=== PATIENT | male | born 1965 | race Caucasian/White ===

== ENCOUNTER 2017-06-09 09:00 | Emergency (ER) | payer BC ==
[2017-06-09 09:23] VITALS: BP 153/89
--- NOTE | 2017-06-09 09:58 | RAD ---
INDICATION: Left shoulder pain. TECHNIQUE: 4 views of the left shoulder were obtained. FINDINGS: The bones are normal alignment. No fracture is seen. 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 There is moderate osteoarthritic change in the acromioclavicular joint. IMPRESSION: 1. MODERATE OSTEOARTHRITIC CHANGE IN THE AC JOINT. 2. OS ACROMIALE.
--- NOTE | 2017-06-09 10:22 | UC ---
Upper Extremity HPI - HPI Summary HPI Summary: 51 year old male presents with left shoulder pain with no trauma. - History of Current Complaint Chief Complaint: UCUpperExtremity Stated Complaint: LEFT SHOULDER PAIN Time Seen by Provider: 06/09/17 09:16 Hx Obtained From: Patient Onset/Duration: Gradual Onset Severity Initially: Moderate Severity Currently: Moderate Pain Intensity: 6 Pain Scale Used: 0-10 Numeric - Allergies/Home Medications Allergies/Adverse Reactions: Allergies Allergy/AdvReac Type Severity Reaction Status Date / Time Diphenhydramine Allergy Severe Difficulty Verified 06/09/17 09:23 [From Benadryl] Breathing PMH/Surg Hx/FS Hx/Imm Hx Previously Healthy: Yes - Surgical History Surgical History: Yes Surgery Procedure, Year, and Place: Right shoulder 2006; Abd hernia 2007; right wrist 07/2016 - Family History Known Family History: Positive: Hypertension - Social History Alcohol Use: Rare Substance Use Type: None Smoking Status (MU): Never Smoked Tobacco Review of Systems Constitutional: Negative Skin: Negative Eyes: Negative ENT: Negative Respiratory: Negative Cardiovascular: Negative Gastrointestinal: Negative Genitourinary: Negative Motor: Negative Neurovascular: Negative Musculoskeletal: Other: - left shoulder pain Neurological: Negative Psychological: Negative All Other Systems Reviewed And Are Negative: Yes Physical Exam Triage Information Reviewed: Yes Vital Signs: Initial Vital Signs Temp 36.8 C 06/09/17 09:15 Pulse 85 06/09/17 09:15 Resp 18 06/09/17 09:15 BP 153/89 06/09/17 09:15 Pulse Ox 100 06/09/17 09:15 Vital Signs Reviewed: Yes Eye Exam: Normal ENT Exam: Normal Dental Exam: Normal Neck exam: Normal Neck: Positive: 1 Respiratory Exam: Normal Cardiovascular Exam: Normal Abdominal Exam: Normal Musculoskeletal: Positive: Strength Limited @, ROM Limited @, Other: - left shoulder pain Neurological Exam: Normal Psychological Exam: Normal Skin Exam: Normal Upper Extremity Course/Dx - Differential Dx/Diagnosis Provider Diagnoses: left shoulder biceps tendonitis Discharge - Discharge Plan Condition: Stable Disposition: HOME Prescriptions: Meloxicam [Mobic] 7.5 mg PO BID PC #30 tab Methocarbamol TAB* [Robaxin 500 MG TAB*] 500 mg PO TID PRN #30 tab PRN Reason: Spasms Patient Education Materials: Tendinitis (ED) Referrals: Killian Maldonado MD [Medical Doctor] - No Primary Care Phys,NOPCP [Primary Care Provider] -
== END 2017-06-09 10:18 | disposition home or self-care (01) ==
LOC: UCCORT 09:00
DX: M75.82 Other shoulder lesions, left shoulder (principal); Z88.8 Allergy status to other drugs, medicaments and biological substances
CPT/HCPCS: 99212; G0463

== ENCOUNTER 2018-01-24 10:34 | Emergency (ER) | payer BC ==
[2018-01-24 11:10] VITALS: BP 143/80
--- NOTE | 2018-01-24 11:39 | UC ---
Back Pain HPI - HPI Summary HPI Summary: Pt with left low back pain. Pt states "irritates it" once a year. 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 Pt has taken motrin yesterday with improvement. no analgesia today. no LE paresthesia, leg weakness . No bowel/bladder changes. no radiation. Pt has previously used flexeril with food relief. No bowel, bladder changes. Pts medications reviewed this visit - History of Current Complaint Chief Complaint: UCBackPain Stated Complaint: BACK PAIN Time Seen by Provider: 01/24/18 11:38 Hx Obtained From: Patient Onset/Duration: Gradual Onset, Lasting Days Timing: Constant Severity Initially: Moderate Pain Intensity: 5 Pain Scale Used: 0-10 Numeric Back Pain: Is Discrete @ - left lumbar Character: Spasmodic, Stiffness Aggravating Factor(s): Movement, Walking Alleviating Factor(s): OTC Meds Associated Signs And Symptoms: Positive: Negative - Allergies/Home Medications Allergies/Adverse Reactions: Allergies Allergy/AdvReac Type Severity Reaction Status Date / Time diphenhydramine Allergy Difficulty Verified 01/24/18 11:11 [From Benadryl] Breathing Home Medications: Home Medications Acetaminophen [Acetaminophen Extra Strength] 1,500 mg PO ONCE PRN 01/24/18 [ History Confirmed 01/24/18] Ibuprofen TAB* [Motrin TAB* 400 MG] 400 mg PO ONCE PRN 01/24/18 [History Confirmed 01/24/18] PMH/Surg Hx/FS Hx/Imm Hx Previously Healthy: Yes - Surgical History Surgical History: Yes Surgery Procedure, Year, and Place: Right shoulder 2006; Abd hernia 2007; right wrist 07/2016 - Family History Known Family History: Positive: Hypertension - Social History Occupation: Employed Full-time Lives: With Family Alcohol Use: None Substance Use Type: None Smoking Status (MU): Never Smoked Tobacco Review of Systems Constitutional: Negative Motor: Negative Neurovascular: Negative Musculoskeletal: Other: - left lower back All Other Systems Reviewed And Are Negative: Yes Physical Exam - Summary Physical Exam Summary: Vital Signs Reviewed: Yes Eyes: Conjunctiva Clear, MARNI. EOM intact and full ENT: Hearing grossly normal TM x 2 clear, mmoist, uvula midling, no exudate, no erythema Neck: Positive: Supple Respiratory: Positive: No respiratory distress, No accessory muscle use + CTA throughout no w/r Cardiovascular: RRR nl s1, s2 no m/r CBT <2 sec Musculoskeletal Exam: GEIGER x 4 without difficulty Strength Intact, ROM Intact no pain c/t/l/s + TTP left mid lumbar area paraspinal. Pain increases with direct palpation. Pt with slow movement changing positions. Pain increases with extension left LE Neurological: Positive: Alert, + sensation throughout Psychological: Positive: Normal Response To Family Skin: Positive: no rash,, no ecchymosis Triage Information Reviewed: Yes Vital Signs: Initial Vital Signs Temp 97.8 F 01/24/18 11:02 Pulse 73 01/24/18 11:02 Resp 18 01/24/18 11:02 BP 143/80 01/24/18 11:02 Pulse Ox 99 01/24/18 11:02 Back Pain Course/Dx - Course Course Of Treatment: Pt with left lower paraspinal back pain. palpable spasm. Pt distally intact. Pt drove to , declined analgesia. will Rx flexeril. heat. stretch. motrin/apap. pt has support belt. pt comfortable and in agreement with plan - Differential Dx/Diagnosis Provider Diagnoses: lumbar spine muscle spasm Discharge - Sign-Out/Discharge Documenting (check all that apply): Discharge/Admit/Transfer - Discharge Plan Condition: Stable Disposition: HOME Prescriptions: Cyclobenzaprine TAB* [Flexeril 10 MG TAB*] 10 mg PO BID PRN #20 tab PRN Reason: muscle spasm Patient Education Materials: Muscle Strain (ED), Low Back Strain (ED) Referrals: Liset Triplett PA [Primary Care Provider] - Additional Instructions: - Okay to alternate ibuprofen (Advil, Motrin) 600mg and Tylenol 1000mg every 3hours as needed for pain. -Take flexeril - muscle relaxer as prescribed. Take with food. Do NOT take for more than 4-[address], operate machinery or drink alcohol while taking [place]. -Apply moist heat to your back for 20 minutes at a time, 4-5 times a day. Once your muscles are warm, slow gentle stretching exercises are important - Wear a back support brace to help with your discomfort - Slowly change position - lying to sitting, sitting to standing -Contact your doctor today to arrange a follow-up appointment next week. -If you pain is uncontrolled, you develop weakness of legs or any other concerns - go to an emergency department for further treatment - Billing Disposition and Condition Condition: STABLE Disposition: HOME
== END 2018-01-24 12:00 | disposition home or self-care (01) ==
LOC: UCCORT 10:34
DX: M62.830 Muscle spasm of back (principal); Z88.8 Allergy status to other drugs, medicaments and biological substances
CPT/HCPCS: 99212; G0463

== ENCOUNTER 2018-05-22 07:19 | Emergency (ER) | payer BC ==
[2018-05-22 07:36] VITALS: BP 127/66
--- NOTE | 2018-05-22 08:05 | UC ---
General HPI - HPI Summary HPI Summary: Patient presented to urgent care reporting 2 weeks of progressive sinus pressure postnasal drip and cough. Patient states he had some coughing reason that improved but now has increased facial pain and postnasal drip. Patient state intermittently his throat hurts. 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 Patient's been home for 3 days. Patient states she's got some body aches. No documented fever. Patient has not taken any of the counter medications. Patient does have diabetes which he takes Actos. Does not take insulin. Does not take his sugar. Patient states that a cousin the work site have been sick as well. Patient's medications reviewed this visit. - History of Current Complaint Chief Complaint: UCRespiratory Stated Complaint: ACHES, FATIGUE Time Seen by Provider: 05/22/18 08:04 Hx Obtained From: Patient Pain Intensity: 0 - Allergy/Home Medications Allergies/Adverse Reactions: Allergies Allergy/AdvReac Type Severity Reaction Status Date / Time diphenhydramine Allergy Difficulty Verified 05/22/18 07:31 [From Benadryl] Breathing PMH/Surg Hx/FS Hx/Imm Hx Previously Healthy: Yes Endocrine History: Diabetes - Surgical History Surgical History: Yes Surgery Procedure, Year, and Place: Right shoulder 2006; Abd hernia 2007; right wrist 07/2016 - Family History Known Family History: Positive: Hypertension - Social History Occupation: Employed Full-time Lives: With Family Alcohol Use: None Substance Use Type: None Smoking Status (MU): Never Smoked Tobacco Review of Systems Constitutional: Negative ENT: Sore Throat, Ear Ache, Nasal Discharge, Sinus Congestion Respiratory: Cough All Other Systems Reviewed And Are Negative: Yes Physical Exam - Summary Physical Exam Summary: Vital Signs Reviewed: Yes A+Ox3, no distress Eyes: Conjunctiva Clear, MARNI. EOM intact and full ENT: Hearing grossly normal, mild fluid left ear, turbinates inflammed and boggy. + PND mmoist, uvula midline, no exudate, no erythema + TTP max sinus, L>R Neck: Positive: Supple Respiratory: Positive: No respiratory distress, No accessory muscle use + CTA throughout no w/r Cardiovascular: RRR nl s1, s2 no m/r CBT <2 sec abd soft + BS nt/nd no guarding, no distension Musculoskeletal Exam: GEIGER x 4 without difficulty Strength Intact, ROM Intact Neurological: Positive: Alert, + sensation throughout Psychological: Positive: Normal Response To Family Skin: Positive: no rash, no ecchymosis Triage Information Reviewed: Yes Vital Signs: Initial Vital Signs Temp 97.8 F 05/22/18 07:32 Pulse 87 05/22/18 07:32 Resp 20 05/22/18 07:32 BP 127/66 05/22/18 07:32 Pulse Ox 99 05/22/18 07:32 Course/Dx - Course Course Of Treatment: Pt with progressive congestion, sinus pressure, PND and sore throat. Pt reports fatigue. VSS. pt with congestion and PND. no exudate. Rx for rhinosinusutus. secretion precaution. decongestant. return precaution - Differential Dx - Multi-Symptom Provider Diagnoses: Rhinosinusitis Discharge - Sign-Out/Discharge Documenting (check all that apply): Patient Departure All imaging exams completed and their final reports reviewed: No Studies - Discharge Plan Condition: Stable Disposition: HOME Prescriptions: Amoxicillin PO (*) [Amoxicillin 500 MG CAP*] 500 mg PO Q12H #20 cap Patient Education Materials: Rhinosinusitis (ED) Referrals: [facility] [place] [facility]IAN REFERRAL [Outside] No Primary Care Phys,NOPCP [Primary Care Provider] - Additional Instructions: - Stay well hydrated. Drink plenty of non-alcoholic, non-caffinated beverages. - Alternate ibuprofen (Advil, Motrin) 600mg and Tylenol every 3 hours for pain or fever. Take with food. Do NOT take for more than 4-5 days. - These infections are spread by secretions - do NOT share eating or drinking utensils - clean items you share with other people such as cell phones, computer mouse, TV remote, computer tablets,etc. Once you have been antibiotics for 2 days, change your toothbrush and your pillowcase. - get plenty of restful sleep - humidify the air in the room where you sleep - boil water, run a hot steam shower, vaporizer, cups of water by heat register - okay to take over the counter decongestant and cough medication - contact your doctor or return with questions or concerns - Billing Disposition and Condition Condition: STABLE Disposition: Home
== END 2018-05-22 08:23 | disposition home or self-care (01) ==
LOC: UCCORT 07:19
DX: J32.9 Chronic sinusitis, unspecified (principal); E11.9 Type 2 diabetes mellitus without complications; Z79.84 Long term (current) use of oral hypoglycemic drugs; Z88.8 Allergy status to other drugs, medicaments and biological substances
CPT/HCPCS: 99212; G0463

== ENCOUNTER 2019-05-31 11:03 | Emergency (ER) | payer BC | END 2019-05-31 12:00 | disposition left against medical advice (07) | LOC: UCCORT 11:03 | DX: Z53.21 Procedure and treatment not carried out due to patient leaving prior to being seen by health care provider (principal) ==

== ENCOUNTER 2019-10-25 08:48 | Emergency (ER) | payer BC ==
--- OUTSIDE RECORDS SUMMARY | 2019-10-25 09:02 | XMS REPORT | Continuity of Care Document ---
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 Onset: 08/07/2011 Chronic crepitant synovitis of wrist Awilda Mendez PA Onset: 05/16/2016 Sprain of wrist Awilda Mendez PA Onset: 05/16/2016 Inflammatory and toxic neuropathy Awilda Mendez PA Onset: 11/19/2016 Essential hypertension Carroll Cortez MD Onset: 08/11/2018 Adult health examination Carroll Cortez MD Onset: 08/11/2018 Hyperlipidemia Carroll Cortez MD Onset: 08/11/2018 Social History Type Date Description Comments Sex Unknown Cigarette Use Family Does Not Smoke ETOH Use Denies alcohol use Tobacco Use Start: Unknown Patient does not smoke Recreational Drug Use Denies Drug Use Smoking Status Reviewed: 07/09/19 Patient does not smoke Allergies, Adverse Reactions, Alerts Active Allergies Reaction Severity Comments Date Benadryl 11/24/2008 Medications Active Medications SIG Qnty Indications Ordering Date Provider Hydrochlorothiazide 1 by mouth every 90tabs I10 Victoria Crawley 25mg day C., LOCKSTITCH BINDER 0 Tablets Saline Nasal [place] 2 sprays 1units J01.90 Victoria Crawley 0.65% intranasal every C., LOCKSTITCH BINDER 0 Solution 2 hours congestion D3 Maximum Strength 1 cap by mouth 90caps M79.672 Breanne 5000Unit every day MD Chery, 9 Capsules PHD B12 Fast Dissolve tab by mouth 90tabs M79.672 Breanne, 5000mcg every day MD Chery, 9 Tablets Dispers PHD Metformin HCL ER 1-2 tabs by 240tabs E11.8 Temo Crawleyen 500mg Tablets mouth twice a C., LOCKSTITCH BINDER 9 ER 24HR day wc Glipizide ER 1 tab by mouth 90tabs E11.8 Tabcorby Victoria 10mg Tablets ER every day C., LOCKSTITCH BINDER 9 24HR Atorvastatin Calcium 1 tab by mouth 90tabs E78.5 Tab, [facility] 40mg every day C., LOCKSTITCH BINDER 9 Tablets Losartan Potassium 1 tab by mouth 90tabs I10 Tab, Victoria 50mg Tablets every day C., LOCKSTITCH BINDER 9 Freestyle [place] Lite 1 check 1-2 1units E11.8 Temo Crawleyen W/Device times a day as C., LOCKSTITCH BINDER 9 Kit needed Freestyle Lite Test use to check 100units E11.8 Temo Crawleyen Strips blood sugar 1-2 C., LOCKSTITCH BINDER 9 times a day as directed. Freestyle Lancets 1 to test sugar 100units E11.8 Temo Crawleyen Misc 1-2 times a day C., LOCKSTITCH BINDER 9 as directed. Alcohol Pads use before 100units E11.8 Victoria Crawley 70% Pads checking blood C., LOCKSTITCH BINDER 9 sugar 1-2 times a day History Medications No Active Medications Unknown 07/09/2019 - 07/09/2019 Medications Administered in Office Medication SIG Qnty Indications Ordering Provider Date Depomedrol 40mg/1cc Analia Low MD 11/24/2007 (methylprednisolone acetate) Injection Immunizations CPT Code Status Date Vaccine Lot # [id number] Given 11/01/2009 H1N1 Immuniation Adminstration 23472 Given 11/01/2009 H1N1 Immuniation Adminstration 19613 Given 05/08/2009 flu vaccination 17743 Given 08/10/2008 Influenza Virus Vaccine Intranasal Vital Signs Date Vital Result Comment 10/12/2019 9:36am BP Systolic Sitting Left Arm 138 mmHg BP Diastolic Sitting Left Arm 96 mmHg Body Temperature 95.4 F Heart Rate 86 /min Respiratory Rate 16 /min Height 68 inches 5'8" Weight 313.38 lb Pain Level 0 BMI (Body Mass Index) 47.6 kg/m2 BSA (Body Surface Area) 2.47 m2 Marion body weight in kilograms 70 kg O2 % BldC Oximetry 96 % Ra 07/09/2019 10:54am BP Systolic Sitting Left Arm 144 mmHg BP Diastolic Sitting Left Arm 69 mmHg Body Temperature 97.3 F Heart Rate 86 /min Respiratory Rate 18 /min Height 68 inches 5'8" Weight 303.00 lb BMI (Body Mass Index) 46.1 kg/m2 BSA (Body Surface Area) 2.44 m2 Marion body weight in kilograms 70 kg O2 % BldC Oximetry 95 % Results Test Acquired Facility Test Result H/L Range Note Date Glycohemoglobin A1c 10/12/2019 PSYCHIATRIC Glycohemoglobin 9.2 % High 4.2-6.3 1 , [address] (A1c) [place], [place] [id number] [phone] eAG 217 mg/dL Comprehensive Metabolic 10/12/2019 PSYCHIATRIC Glucose 284 mg/dL High 74-[address] [place], [place] [id number] [phone] BUN 11 mg/dL Normal 7-18 Creatinine 0.9 mg/dL Normal 0.6-1.3 Glom Filtration Rate, Estimate >60 mL/min >60 If >60 mL/min >60 3 BUN/Creat 12.2 ratio Sodium 134 mmol/L Low 136-145 Potassium 3.9 mmol/L Normal 3.5-5.1 Chloride 102 mmol/L Normal 98-107 Carbon Dioxide 28 mmol/L Normal 21-32 Anion Gap 4 mEq/L Low 8-16 Calcium 9.1 mg/dL Normal 8.5-10.1 Total Protein 7.6 g/dL Normal 6.4-8.2 Albumin 3.7 g/dL Normal 3.4-5.0 Globulin 3.9 g/dL Normal 1.9-4.3 Alb/Glob 0.9 ratio Bilirubin,Total 1.0 mg/dL Normal 0.2-1.0 Sgot/Ast 22 U/L Normal 15-37 SGPT/Alt 39 U/L Normal 12-78 Alkaline Phosphatase 74 U/L Normal 45-117 LDL Cholesterol Profile 10/12/2019 [facility] Cholesterol 128 mg/dL <[address] [place] [address] [phone] Triglycerides 128 mg/dL <150 5 HDL Cholesterol 38 mg/dL Low >40 6 LDL-Cholesterol 64 mg/dL < 100 7 Microalbumin,Random 10/12/2019 [facility] Microalbumin,Urine 18.3 < 20.[address] mg/[place] [address] [phone] Order 10/12/2019 [facility], Cardiology EKG <pendi [address] ng> [place] [address] [phone] 1 E11.9 2 Elevated levels of HbA1c suggest the need for more aggressive treatment of glycemia. The [place] [employer] Association recommends that a primary goal of therapy should be a HbA1c of <7% and that physicians should re-evaluate the treatment regimen in patients with HbA1c values consistently >8%. 3 Note: Persistent reduction for 3 months or more in an eGFR <60 mL/min/1.73 m2 defines CKD. Patients with eGFR values >/=60 mL/min/1.73 m2 may also have CKD if evidence of persistent proteinuria is present. The original MDRD equation for estimated GFR is not valid for patients less than 18 years of age. Additional information may be found at www.kdoqi.org. 4 Reference Guidelines*: Desirable: ........... < 200 mg/dL Borderline High: ..... 200-239 mg/dL High: ................ >= 240 mg/dL * The National Cholesterol Education Program (NCEP) 5 Reference Guidelines*: Normal: ............. < 150 mg/dL Borderline High: .... 150-199 mg/dL High: ............... 200-499 mg/dL Very High: .......... > 500 mg/dL * Source: National Cholesterol Education Program (NCEP) 6 Reference Guidelines*: Low HDL: ..... < 40 mg/dL Normal: ..... 40-60 mg/dL Desirable: ... > 60 mg/dL *The National Cholesterol Education Program(NCEP) 7 Reference Guidelines*: Optimal:........... <100 mg/dL Near Optimal....... 100-129 mg/dL Borderline High.... 130-159 mg/dL High............... 160-189 mg/dL Very High.......... >=190 mg/dL * Source: National Cholesterol Education Program (NCEP) Procedures Date Code Description Status 10/12/2019 05077 EKG-Tracing And Report Completed Medical Devices Description No Information Available Encounters Type Date Location Provider Dx Diagnosis Office Visit 10/12/2019 Family Medicine Victoria Crawley, I10 Essential ( primary) 9:40a [facility] hypertension E11.9 Type 2 diabetes mellitus without complications E78.5 Hyperlipidemia, unspecified E66.9 Obesity, unspecified J01.90 Acute sinusitis, unspecified Office Visit 07/09/2019 11:00a Family Medicine Chery Raymundo, M79.672 Pain in left [facility] , PHD foot E11.8 Type 2 diabetes mellitus with unspecified complications E78.5 Hyperlipidemia, unspecified I10 Essential (primary) hypertension E66.9 Obesity, unspecified R53.83 Other fatigue Office Visit 06/30/2019 12:00p [facility], M79.672 Pain in left [facility] foot R60.0 Localized edema E11.8 Type 2 diabetes mellitus with unspecified complications Assessments Date Code Description Provider 10/12/2019 I10 Essential (primary) hypertension Victoria Crawley, LOCKSTITCH BINDER 10/12/2019 E11.9 Type 2 diabetes mellitus without Victoria Crawley, LOCKSTITCH BINDER complications 10/12/2019 E78.5 Hyperlipidemia, unspecified Victoria Crawley, LOCKSTITCH BINDER 10/12/2019 E66.9 Obesity, unspecified Victoria Crawley, LOCKSTITCH BINDER 10/12/2019 J01.90 Acute sinusitis, unspecified Victoria Crawley, LOCKSTITCH BINDER 07/09/2019 M79.672 Pain in left foot Chery Raymundo MD, PHD 07/09/2019 E11.8 Type 2 diabetes mellitus with Chery Raymundo MD, PHD unspecified complications 07/09/2019 E78.5 Hyperlipidemia, unspecified Chery Raymundo MD, PHD 07/09/2019 I10 Essential (primary) hypertension Chery Raymundo MD, PHD 07/09/2019 E66.9 Obesity, unspecified Chery Raymundo MD, PHD 07/09/2019 R53.83 Other fatigue Chery Raymundo MD, PHD 06/30/2019 M79.672 Pain in left foot Patricia Trevizo FNP 06/30/2019 R60.0 Localized edema Patricia Trevizo FNP 06/30/2019 E11.8 Type 2 diabetes mellitus with Patricia Trevizo FNP unspecified complications Plan of Treatment Future Appointment(s):12/28/2019 10:00 am - Victoria Crawley FNP at [facility]10/12/2019 - Victoria Crawley FNPI10 Essential (primary) hypertensionNew Medication:Hydrochlorothiazide 25 mg - 1 by mouth every dayComments:PRESSURE POINTS1 What high blood pressure is. Blood pressure is the force that your blood exerts onthe jack of the arteries it flows through, just like water flowing through a garden hose pushes against the hose??s jack. Your blood pressure consists of two numbers. ??Systolic is the pressure on blood vessel jack during heart beats,?? says Lorenzo Lira, professor of cardiovascular disease prevention at the [employer]. ??Diastolic is the pressure between beats,?? so it??s lower. When people have high blood pressure??also called hypertension??it??s often because blood vessels are too rigid to expand when the heart pumps. It??s as though the hose were made of glass instead of rubber. 2 Everyone is at risk. Why worry about high blood pressure if you haven??t been diagnosed with it? Because, odds are, you eventually will be. ??Over time, 90 percent of people in this country develop hypertension,?? says Scooter Mcdaniel, professor of preventive medicine at the [employer]. That??s because blood pressure typically creeps up as youage. In the Atherosclerosis Risk in Communities study, which followed more than 15,000 Americans aged 45 to 64, average systolic blood pressure linda by five points in five years.1 ??Blood pressures drift upward as people get older and they??re exposed to long-term excess sodium,?? explains Havas. ??That??s why almost all adults are going to get blood pressures that put them at higher risk for heart disease and stroke.? ? But most hypertension is preventable with a healthy diet and exercise, he adds.3 Your risk starts to rise at any blood pressure above ??normal.?? Doctors used to diagnose patientswith hypertension when their systolic pressure reached NORMAL BLOOD PRESSURE <120/<80 * Recommendations: Healthy lifestyle choices and yearly checks.ELEVATED BLOOD PRESSURE 120-129/<80 * Recommendations: Healthy lifestyle changes, reassessed in 3-6 months.HIGH BLOOD PRESSURE / STAGE 1 130-139/80-89 * Recommendations: 10-year heart disease and stroke risk assessment. If less than 10% risk, lifestyle changes, reassessed in 3-6 months. If higher, lifestyle changes and medication with monthly follow-ups until blood pressure is controlled. HIGH BLOOD PRESSURE / STAGE 2 >140/> 90 * Recommendations: Lifestyle changes and 2 different classes of medicine, with monthly follow-ups until blood pressure is controlled.How much diet and exercise can lower your blood pressure Got high blood pressure? You??re in good company.Nearly half of [place] adults now have hypertension, according to recent guidelines from the [place] [employer] Association and the [place] College [employer].That means that many people who had ??prehypertension?? according to the old guidelines now have ??stage 1 hypertension.?? Most of them don??t need to start taking drugs to lower their pressure (that depends on other risk factors). Instead, the guidelines recommend a healthy lifestyle.Why? Because it works. Here??s how much your systolic pressure (the higher of your two blood pressure numbers) could fall with diet and exercise, according to the new guidelines:1. Eat a DASH diet: 11 pointsDon??t want to count servings?Start by filling half your plate with fruits and vegetables.A DASH-style diet does it all : protects your heart, piles on the fruits and veggies, and cuts unhealthy carbs. It??s not only low in saturated fat, sugar, and salt, it??s also rich in nutrients like potassium, magnesium, calcium, and fiber.Plus, DASH works for omnivores or vegetarians.2. Exercise: 5 pointsAny kind of exercise helps.All formsof exercise will lower blood pressure, but the best evidence is for aerobic activity. Aim for 90 to 150 minutes a week of aerobics (brisk walking, biking, running, etc.) and/or resistance training (biceps curls, leg presses, etc.).If you??re starting with walking, here??s how to ramp up the intensity gradually.3. Lose weight: 5 pointsDropping extra pounds can lower your pressure.Losing excess weight helps lower blood pressure. Expect about a 1 point drop in systolic pressure for every 2 pounds you lose.4. Cut salt: 5 pointsMost sodium comes from packaged and restaurant foods that don??t even taste salty.To lower blood pressure, cut your sodium by 1,000 milligrams a day, ideally to 1,500 mg a day. Start with these seven foods.Bread. About 100 to 200 mg of sodium per slice is typical. SciAps and some other brands make it easy to stay at the low end.Cheese. Most types have 150 to 250 mg ofsodium per ounce. Try [place] (just 40 to 60 mg) or fresh mozzarella (80 to 100 mg) or just 1 ??slim cut?? or ??thin?? slice of your favorite variety.Poultry. The salt solution that??s often added to rawchicken or turkey can add 120 mg of sodium to the poultry??s 80 mg of (naturally occurring) sodium. So avoid poultry with labels like ??Contains up to 15% of a solution.??Deli meats. Just 2 oz. can pile 500 to 700 mg of sodium on your sandwich. Get Boar??s Head??s ( or another brand??s) ??low-sodium?? meats that are sliced at the [employer] counter ( about 50 to 80 mg in 2 oz.).Soup. Most soups deliver 600 to 900 mg of sodium per cup. Try Imagine, [place], Dr. Loredo??s, Alesia??s Organic, or Institution Director Trell?? s ??Light in Sodium?? or ??Reduced Sodium?? soups instead (200 to 400 mg) .Pizza. You can easily get 1,000 mg of sodium in 2 slices. Go light on the cheese, and replace meat with veggies (not olives).Restaurant entre??es. Many pack 1,000 to 2,000 mg of sodium. Save half for later. And add a side salad or other veggies to boost potassium.5. Get more potassium: 4 to 5 pointsAnother reason to eat more vegetables: potassium.The goal: Get 3,500 to 5,000 milligrams of potassium a day. You??ll get the most bang for your calorie sue with fruits and vegetables. Some examples: Calories Potassium (mg):Baked potato with skin (1 small) 130 750 Beet greens (?? cup cooked) 20 650 Yellowfin tuna (4 oz. cooked) [id number] Sweet potato with skin (1 small) 130 540 Wild Coh[place] salmon (4 oz. cooked) 160 490 Spinach (?? cupcooked) 20 420 Banana (1) 110 420 Low-fat plain yogurt (6 oz.) 110 400 Fat-free milk (1 cup) 80 380 Cantaloupe (?? ) 50 370 Lentils (?? cup cooked) 120 370 [place] beans (?? cup cooked) 120 370 Tomato sauce (?? cup) 30 360 Avocado (?? cup) 120 360 Spinach (2 cups raw) 10 340 Shelled edamame (?? cup cooked) 100 340 [place] or nectarine (1) 60 290 [place] sprouts (?? cup cooked) 30 250 [place] (1) 70 240 Tariq lettuce (2 cups raw) 10 230 Apple (1) 100 200 6. Limit alcohol: 4 pointsLimiting alcohol helps keep your pressure in check.If you drink, stop at one drink a day for women or two for men.Find this article interesting and useful? Order a copy of Safe & Easy Steps to Lower Your Blood Pressure. Nine out of 10 Americans will eventually have high blood pressure and, with it, an increased risk of stroke, heart attack, diabetes, dementia, and more. Eating the right diet, losing weight, and exercising can keep your pressure under control. And, if you do have hypertension, it can lower your pressureas much as??or more than?? prescription drugs. This booklet, from the editors of [employer], shows you how. (48 pages)Dr. Raymundo Can Print this out for you.The information in this post first appeared in [employer] Healthletter in August 2017.WHAT WORKS? If you have high blood pressure, here??s roughly how much of a drop in systolic pressure you can expect from changes in diet and from exercise.Advice ~ What It Means ~ Typical Drop in Systolic Blood Pressure: Maintain a Normal Weight ~ Lose??or don??t gain??excess weight ~ 5 points for every 10 pounds you lose. Follow a DASH Diet ~ Eat a diet: ?? rich in vegetables & fruits ?? that includes whole grains, low-fat dairy, poultry, fish, beans, nuts, & oils ?? low in sugar & red meat ~ 11 pointsCut Sodium ~ Consume no more than 2,400??milligrams a day (1,500 mg a day lowers pressure even more)~ 5 pointsBoost Potassium ~ Shoot for 3,500 to 5,000 milligrams a day, mostly from fruits and vegetables ~ 4-5 pointsExercise ~ Doat least 30 minutes of aerobic activity (like brisk walking) most days of the week ~ 5 pointsLimitAlcohol ~ Men: No more than 2 drinks a day Women: No more than 1 drink a day ~ 4 iedxvvP07.9 Type 2 diabetes mellitus without complicationsFollow up:3 months recheck A1C and diabetes management follow up, the beginning of December.E78.5 Hyperlipidemia, unspecifiedComments:-Continue current management. PrzuarlR17.9 Obesity, unspecifiedComments:-Do your best to get back into exercising to help with getting the weight off in addition to eating deurbagK43.90 Acute sinusitis , unspecifiedNew Medication:Saline Nasal [place] 0.65 % - 2 sprays intranasal every 2 hours congestionComments:-No signs of a sinus infection today, hopefully you continue to feel well.-If congestion returns, try the saline nasal spray to help break up the congestion-Increase your fluid intake to thin the mucus-May use acetaminophen for pain/discomfort every 4-6 hrs as needed.-If sinus pain continues greater than 10 days despite doing the above treatments and you have constant pain in your face or ears, call and make an appointment to be re seen.AllComments:-When you get the name of the mail pharmacy, call and let me know I will send in refills for you. Goals 10/12/2019 - Victoria Crawley, FNPE11.9 Type 2 diabetes mellitus without complicationsMorning fasting blood sugar close to 120 Functional Status Description No Information Available Mental Status Description No Information Available Referrals Description No Information Available
[2019-10-25 09:40] VITALS: BP 139/91
[2019-10-25] MEDS ORDERED: Ketorolac *IM* INJ* 60 MG/2 ML VIAL IM ONE (09:46)
--- NOTE | 2019-10-25 09:54 | UC ---
General HPI - HPI Summary HPI Summary: Patient states 3 days ago he was helping his daughter move. He was carrying kitchen table and got off balance and fell and injured his low back. Has been doing basic things at home with no improvement, hot showers, gentle movement. Alternating hot and colds packs with tylenol. No numbness or tingling down either legs. 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 Meds; Reviewed - History of Current Complaint Chief Complaint: UCBackPain Stated Complaint: BACK PAIN Time Seen by Provider: 10/25/19 09:32 Pain Intensity: 8 - Allergy/Home Medications Allergies/Adverse Reactions: Allergies Allergy/AdvReac Type Severity Reaction Status Date / Time diphenhydramine Allergy Difficulty Verified 10/25/19 09:30 [From Aditi] Breathing Home Medications: Home Medications Pioglitazone TAB* [Actos TAB*] 1,000 mg PO BID 04/28/16 [History Confirmed 10/24] Acetaminophen [Acetaminophen Extra Strength] 2,000 mg PO ONCE PRN 01/24/18 [ History Confirmed 05/22/18] Cyclobenzaprine TAB* [Flexeril 10 MG TAB*] 10 mg PO TID PRN #20 tab 10/25/19 [Rx ] Naproxen [Naproxen 500 mg tab] 500 mg PO BID #30 tablet 10/25/19 [Rx] oxyCODONE/Acetamin 5/325 MG* [Percocet 5/325 TAB*] 1 tab PO Q8H PRN #15 tab MDD 3 10/25/19 [Rx] PMH/Surg Hx/FS Hx/Imm Hx Previously Healthy: Yes Endocrine History: Diabetes - Surgical History Surgical History: Yes Surgery Procedure, Year, and Place: Right shoulder 2006; Abd hernia 2007; right wrist 07/2016 - Family History Known Family History: Positive: Hypertension - Social History Alcohol Use: None Substance Use Type: None Smoking Status (MU): Never Smoked Tobacco Review of Systems All Other Systems Reviewed And Are Negative: Yes Physical Exam Triage Information Reviewed: Yes Appearance: Well-Appearing Vital Signs: Initial Vital Signs Temp 98.3 F 10/25/19 09:31 Pulse 76 10/25/19 09:31 Resp 16 10/25/19 09:31 BP 139/91 10/25/19 09:31 Pulse Ox 99 10/25/19 09:31 Eyes: Positive: Conjunctiva Clear Musculoskeletal: Positive: Other: - paraspinal lumber tenderness b/l. No spinous process tenderness. Limited ROM and movement due to pain. Good lower ext strength. modified straight leg raise normal Course/Dx - Course Course Of Treatment: This is a 54 yr old with low back pain No neurologic symptoms Toradol 60 mg IM given in UC Plan Recommend taking Naproxen as prescribed - take with food Continue tylenol as directed Percocet for break through pain - take as directed Flexeril for muscle spasms as directed Gentle low back movement/exercises If pain persists or worsens, recommend follow up with PCP or return to urgent care - Diagnoses Provider Diagnosis: Low back strain Discharge ED - Sign-Out/Discharge Documenting (check all that apply): Patient Departure All imaging exams completed and their final reports reviewed: No Studies - Discharge Plan Condition: Fair Disposition: HOME Prescriptions: Cyclobenzaprine TAB* [Flexeril 10 MG TAB*] 10 mg PO TID PRN #20 tab PRN Reason: Spasms Naproxen [Naproxen 500 mg tab] 500 mg PO BID #30 tablet oxyCODONE/Acetamin 5/325 MG* [Percocet 5/325 TAB*] 1 tab PO Q8H PRN #15 tab MDD 3 PRN Reason: Pain - Severe Patient Education Materials: Low Back Strain (ED), Lower Back Exercises (ED) Referrals: [facility] [Outside] No Primary Care Phys,NOPCP [Primary Care Provider] - Additional Instructions: Recommend taking Naproxen as prescribed - take with food Continue tylenol as directed Percocet for break through pain - take as directed Flexeril for muscle spasms as directed Gentle low back movement/exercises If pain persists or worsens, recommend follow up with PCP or return to urgent care - Billing Disposition and Condition Condition: FAIR Disposition: Home
== END 2019-10-25 10:04 | disposition home or self-care (01) ==
LOC: UCCORT 08:48
DX: S39.012A Strain of muscle, fascia and tendon of lower back, initial encounter (principal); E11.9 Type 2 diabetes mellitus without complications; Z88.8 Allergy status to other drugs, medicaments and biological substances; W18.39XA Other fall on same level, initial encounter; Y92.9 Unspecified place or not applicable
CPT/HCPCS: 96372; 99212; G0463; J1885